=== PATIENT | male | born 1975 | race Caucasian/White ===

== ENCOUNTER 2022-11-06 09:07 | Day surgery (SDC) | payer BC ==
[2022-11-01 14:29] VITALS: BMI 35.3
[2022-11-06 11:24] VITALS: TEMP 97.8
[2022-11-06 11:59] VITALS: BP 110/65; PULSE 85; RESP 18
== END 2022-11-06 12:03 | disposition home or self-care (01) ==
LOC: FASU-ENDO 09:07
PROVIDERS: ATTEND Internal Medicine Gastroenterology
PROC: 0DJD8ZZ Inspection of Lower Intestinal Tract, Via Natural or Artificial Opening Endoscopic (ICD-10-PCS; principal; 2022-11-06 10:52)
DX: Z12.11 Encounter for screening for malignant neoplasm of colon (principal); K64.1 Second degree hemorrhoids; K57.30 Diverticulosis of large intestine without perforation or abscess without bleeding